=== PATIENT | male | born 1940 | race Caucasian/White ===

== ENCOUNTER 2018-09-02 22:08 | Emergency (ER) | payer MEDICARE, BC ==
[2018-09-02] MEDS ORDERED: Bacitracin Zinc 1 Packet ONE (23:53)
--- NOTE | 2018-09-03 09:33 | CT ---
CT OF THE HEAD WITHOUT CONTRAST: DATE: 09/02/2018. HISTORY: Fall, trauma, pain. TECHNIQUE: Axial CT imaging at 5 mm intervals from the vertex through the skull base without contrast. FINDINGS: There is mild polypoid mucosal thickening involving alveolar recess of bilateral maxillary sinuses. There is prominent scalp swelling in the right frontotemporal region. No associated fracture. No in tracranial hemorrhage, midline shift, or mass effect. IMPRESSION: Prominent scalp swelling on the right with no associated fracture or intracranial hemorrhage. POS: [facility]
== END 2018-09-03 00:19 | disposition home or self-care (01) ==
LOC: ERS 22:08
DX: S00.83XA Contusion of other part of head, initial encounter (principal); F32.9 Major depressive disorder, single episode, unspecified; E78.00 Pure hypercholesterolemia, unspecified; M10.9 Gout, unspecified; W17.89XA Other fall from one level to another, initial encounter; Y93.01 Activity, walking, marching and hiking
CPT/HCPCS: 70450